=== PATIENT | female | born 1975 | race African-American/Black ===

== ENCOUNTER 2018-08-02 11:04 | Outpatient (CLI) | payer OTHER ==
--- NOTE | 2018-08-03 04:16 | Diagnostic Imaging Report ---
NINA DELVALLE [facility] [id number] [facility].[address] [id number] Report Submission Date: Aug 02, 2018 7:12:49 PM CHILD CENTER ASSISTANT Patient Study Name: LUKE PALUMBO Date: Aug 02, 2018 11:18:07 AM CHILD CENTER ASSISTANT Modality Type: US Gender: F Description: US TRV : 79 Institution: [facility] Physician: NINA DELVALLE Endovaginal pelvic ultrasound Clinical history: Menorrhagia. Technique: Real-time sonography of the pelvis is performed in transverse and longitudinal views. Findings: Uterus measures 9.8 cm in length by 6.1 cm in AP and 6.3 cm in coronal dimension. Endometrium is prominent measuring 12 mm in thickness. There is a slightly hypoechoic fibroid posterior fundal region measuring 3.6 cm in greatest dimension. There is a smaller anterior fibroid measuring 2.1 cm in greatest dimension. The uterus is otherwise unremarkable. The left ovary measures 3.3 x 3.5 x 1.8 cm in size with a calculated volume of 8.6 mL. Right ovary is not visualized. There is no free fluid in the pelvis or pelvic mass. There are multiple follicles in left ovary. Blood flow is confirmed within the ovary. Impression: 1. Fibroids. 2. Nonvisualized right ovary. Electronically signed on Aug 02, 2018 7:12:49 PM CHILD CENTER ASSISTANT by: Gen BROWN
== END 2018-08-02 11:30 ==
LOC: RAD 11:04
PROVIDERS: ATTEND Nurse Practitioner Family
DX: N85.2 Hypertrophy of uterus (principal); D25.9 Leiomyoma of uterus, unspecified
CPT/HCPCS: 76830